=== PATIENT | male | born 1965 | race Caucasian/White ===

== ENCOUNTER 2021-09-03 14:14 | Outpatient (REF) | payer OTHER, SELFPAY ==
[2021-09-03 14:58] LABS: COVID-19 Test Negative (Negative)
== END 2021-09-03 14:15 | disposition home or self-care (01) ==
LOC: HO.LAB 14:14
PROVIDERS: Visit Provider Internal Medicine
DX: Z20.822 Contact with and (suspected) exposure to COVID-19 (principal)
CPT/HCPCS: 87635; C9803

== ENCOUNTER 2025-05-14 12:56 | Outpatient (REF) | payer OTHER, SELFPAY ==
--- NOTE | 2025-05-14 | EMG_ITS ---
Chief complaint:?M75.21 Bicipital tendinitis, right shoulder Reason for referral: Bicipital tendinitis, right shoulder Referred by:?Asha Michelle MD Procedure done: Right upper extremity NCS/EMG Right median and ulnar motor studies were performed with F responses. Right median and ulnar mixed sensory and ortho digit sensory studies were performed. Right median and lateral antecubital brachial sensory and radial sensory studies were performed an EMG examination was performed. Findings: No abnormalities noted. Impression: This is an unremarkable study with no evidence of entrapment neuropathy or a proximal lesion. [place] [id number] 1 extremity MTDD
--- OUTSIDE RECORDS SUMMARY | 2025-05-14 15:40 | XMS_ITS ---
Author Name [facility] Organization Unknown Care Team Organization Name Specialty Phone Email Start Date End Da te [facility] STARLA TRINIDAD Primary Care 09/14/2022 02/26/2024 [facility] Irene العراقي Primary Care 05/17/2022 02/26/20 24
--- OUTSIDE RECORDS SUMMARY | 2025-05-14 15:40 | XMS_ITS | Clinical Summary ---
Author Organization Patient Business Ser [facility] Address [address] [place] [address] Care Team Providers Care Account Manager Relief Name Role Phone Asha Pimentel MD Primary Care Prov ider Allergies No known active allergies Medications clotrimazole (LOTRIMIN) 1 % cream Apply topically 2 (two) times a day. 30 g 2 11/09/19 25 Active diclofenac (VOLTAREN) 1 % topical gel Apply 1 g topically 2 (two) times a day. 100 g 2 11/09/19 25 Active hydrocortisone 2.5 % cream Apply topically 2 (two) times a day. 30 g 2 11/09/19 25 Active dicyclomine (BENTYL) 10 mg capsule TAKE 1 CAPSULE BY MOUTH 4 TIMES A DAY BEFORE MEALS AND AT BEDTIME 360 capsule 1 11/15/19 25 Active omeprazole (PriLOSEC) [address] capsule TAKE 1 CAPSULE BY MOUTH DAILY FOR 360 DAYS. 90 capsule 1 02/13/20 25 Active sertraline (ZOLOFT) 100 mg tablet TAKE 1 TABLET BY MOUTH 1 TIME EACH DAY. 90 tablet 1 05/02/20 25 Active naproxen (NAPROSYN) 500 mg tablet TAKE 1 TABLET BY MOUTH TWICE A DAY WITH MEALS 180 tablet 1 05/02/20 25 Active sertraline (ZOLOFT) 100 mg tablet Take 1 tablet (100 mg total) by mouth 1 (one) time each day. 90 each 1 11/09/19 25 025 Discontinued naproxen (NAPROSYN) 500 mg tablet Take 1 tablet (500 mg total) by mouth 2 (two) times a day with meals. 180 each 1 11/09/19 25 025 Discontinued Active Problems Problem Noted Date Diagnosed Date Diverticulitis 07/22/2022 PTSD (post-traumatic stress disorder) 08/25/2020 Obesity (BMI 30-39.9) 08/17/2020 Depression 04/14/2020 H. pylori infection 11/14/2016 Overview (04/17/2024): Treated with PrevPac 2016. Stool test neg after rx. Hemorrhoid 05/01/2015 Encounters Date Type Department Care Team Description 04/23/[address] [facility] [address] [place] [id number] Asha Douglass MD 04/21/2025 4:00 PM EDT - 04/21/2025 11:59 PM EDT Hospital Encounter [facility] - [facility] [address] [place] [id number] Bicipital tendonitis of right shoulder Discharge Disposition: Home or Self Care 04/21/2025 3:00 PM EDT Office Visit [facility] [address] [place] [address] Asha Douglass MD Bicipital tendonitis of right shoulder (Primary Dx); Eczema, unspecified type 04/21/[address] [phone] Asha Douglass MD from Last 3 Months Immunizations Immunization Administration Dates Next Due Pfizer (ages 12 & older) Bivalent, COVID-19 04/09 Tdap Tetanus diptheria acell ular pertussis (Boostrix; Adacel) 7yo and older 12/17/2021,06/16/2009 Surgical History Surgery Date Site/Laterality Comments SHOULDER SURGERY PROCEDURE: HISTORICAL SHOULDER SURGERY; COMMENT: reconstruction UPPER GASTROINTESTINAL ENDOSCOPY 12/02/2016 PROCEDURE: AK UPPER GI ENDOSCOPY PERFORMED; COMMENT: Normal appearing upper GI endoscopy, not on PPI treatment. COLONOSCOPY 12/02/2016 PROCEDURE: HISTORICAL COLONOSCOPY; COMMENT: Normal screening examination Medical History Medical History Date Comments H. pylori infection 11/14/2016 DX:H. pylori infection Family History Relation Name Status Comments Brother 1 Alive Brother 2 Alive Father Alive prostate cancer Mother Alive Sister Alive Social History Tobacco Use Types Packs/Day Years Used Date Smoking Tobacco: Never Smokeless Tobacco: Never Tobacco Cessation:Counseling Given: Not Answered Alcohol Use Standard Drinks/Week Comments Yes 0 (1 standard drink = 0.6 oz pur e alcohol) Sex and Gender Information Value Date Recorded Sex Assigned at Not on file Legal Sex Male 4:33 PM EST Gender Identity Not on file Sexual Orientation Not on file Obstetrics History Last Filed Vital Signs Vital Sign Reading Time Taken Comments Blood Pressure 130/80 04/21/2025 2:56 PM EDT Pulse 73 04/21/2025 2:56 PM EDT Temperature 36.7 C (98.1 F) 04/21/2025 2:56 PM EDT Respiratory Rate - - Oxygen Saturation - - Inhaled Oxygen Concentration - - Weight 112 kg (247 lb) 04/21/2025 2:56 PM EDT Height 177.8 cm (5' 10 ) 11/08/2024 2:43 PM EDT Body Mass Index 35.44 11/08/2024 2:43 PM EDT Plan of Treatment Upcoming Encounters Date Type Department Care Team (Late st Contact Info) Description 05/19/2025 1:15 PM EST Office Visit Adult Medicine - [place] [address] [place] [phone] Asha Pimentel MD [address] [place] [address] Health Maintenance Due Date Last Done Comments Hepatitis B Vaccines (1 of 3 - 19+ 3-dose series) 1984 Pneumococcal Vaccine: 50+ Years (1 of 1 - PCV) 2015 HIV Screening 06/21/2021 Hepatitis C Screening 06/21/2021 Medicare Annual Wellness Visit 06/21/2021 Social Influencers of Health Screening 11/07/2024 11/08/2023 COVID-19 Vaccine ( season) 2025 04/27/2022, 04/27/2021, 09/11/2020, Additional history exists Influenza Vaccine (#1) 2025 Cholesterol Screening (Lipid Panel) 12/20/2026 12/20/2021, 10/06/2017 DTaP,Tdap,and Td Vaccines (3 - Td or Tdap) 12/18/2031 12/17/2021, 06/16/2009 Colorectal Cancer Screening: Colonoscopy 11/30/2032 11/30/2022 RSV Immunization Adult Patients (1 - 1-dose 75+ series) 2040 Depression Screening Completed 11/08/2024 HIB Vaccines Aged Out No longer eligi ble based on patient's age to complete this topic HPV Vaccines Aged Out No longer eligi ble based on patient's age to complete this topic Hepatitis A Vaccines Aged Out No long er eligible based on patient's age to complete this topic IPV Vaccines Aged Out No longer eligi ble based on patient's age to complete this topic MMR Vaccines Aged Out No longer eligi ble based on patient's age to complete this topic Meningococcal ACWY Vaccine Aged Out N o longer eligible based on patient's age to complete this topic Meningococcal B Vaccine Aged Out No l onger eligible based on patient's age to complete this topic RSV Immunization Patients Under 20 months Aged Out No longer eligible based on patient's age to complete this topic Varicella Vaccines Aged Out No longer eligible based on patient's age to complete this topic Zoster Vaccines Discontinued Procedures Procedure Name Priority Date/Time Associated Diagnosis Comments XR SHOULDER 2+ VIEWS RIGHT Routine 04/21/2025 4:14 PM EDT Bicipital tendonitis of right shoulder from Last 3 Months Results * XR Shoulder 2+ Views Right (04/21/2025 4:14 PM EDT) Anatomical Region Laterality Modality Upper Extremities, Shoulder Right Radi ographic Imaging 04/21/2025 5:07 PM EDT Impressions 04/21/2025 5:10 PM EDT No acute fracture or dislocation of the right shoulder. -------- FINAL REPORT -------- Dictated By: Rufina Enciso Dictated Date: 04/21/2025 17:07 ET Assigned Physician: Rufina Enciso Reviewed and Electronically Signed By: Rufina Enciso Signed Date: 04/21/2025 17:10 ET Workstation ID: [id number] Transcribed By: Self Edit Transcribed Date: 04/21/2025 17:07 ET Narrative 04/21/2025 5:10 PM EDT HISTORY: right shoulder TECHNIQUE: 4 views of the right shoulder COMPARISON: None FINDINGS: No acute fracture or dislocation is seen. There is no evidence of malalignment. The AC joint is intact. Procedure Note Rufina Enciso MD - 04/21/2025 HISTORY: right shoulder TECHNIQUE: 4 views of the right shoulder COMPARISON: None FINDINGS: No acute fracture or dislocation is seen. There is no evidence ofmalalignment. The AC joint is intact. IMPRESSION: No acute fracture or dislocation of the right shoulder. -------- FINAL REPORT -------- Dictated By: Rufina Enciso Dictated Date: 04/21/2025 17:07 ET Assigned Physician: Rufina Enciso Reviewed and Electronically Signed By: Rufina Enciso Signed Date: 04/21/2025 17:10 ET Workstation ID: [id number] Transcribed By: Self Edit Transcribed Date: 04/21/2025 17:07 ET Asha Pimentel MD IMG XR PROCEDURES Final Result from Last 3 Months Insurance [facility] MEDICARE Member Subscriber Plan / Payer (Ef fective 2023-Present) Name:JUAN RAYA Relation to Subscriber:Self Name:Juan Raya Payer ID:[id number] Group ID:[id number] Type:Not on file Address: [place] [address] [place] [id number] Care Teams Account Manager Relief Relationship Specialty Start Date End Date Asha Pimentel MD PCP - General Internal Medicine 09/25/24
== END 2025-05-14 12:57 | disposition home or self-care (01) ==
LOC: HO.NEURO 12:56
PROVIDERS: PCP Internal Medicine; Visit Provider Internal Medicine
DX: M75.21 Bicipital tendinitis, right shoulder (principal)
CPT/HCPCS: 95886; 95911

== ENCOUNTER → 2025-05-14 13:04 | Outpatient (BNV) | payer OTHER, SELFPAY | PROVIDERS: PCP Internal Medicine; Visit Provider Psychiatry & Neurology Neurology | DX: M75.21 Bicipital tendinitis, right shoulder (principal) | CPT/HCPCS: 95886; 95911 ==